=== PATIENT | female | born 1990 | race Two or more races ===

== ENCOUNTER 2025-10-29 08:50 | Observation (INO) | payer OTHER, SELFPAY ==
[2025-10-29] VITALS (11 sets, daily range): BP systolic 93–143; BP diastolic 67–91; PULSE 54–101; RESP 15–92; TEMP 36.6–36.8; O2SAT 69–99; BMI 19.8
--- NOTE | 2025-10-29 09:22 | XR_ITS ---
Study: AP upright chest of 0926 hours 29 October 2025. INDICATION: Shortness of breath. Known dextrocardia. COMPARISON: None. FINDINGS: The lungs are at the upper limit of normal for a expansion. There are no segmental alveolar infiltrates. The right lung base is extensively occupied by honeycombing. Similar, but more limited finding, is noted in the left base particularly inferomedially. There is no visible effusion. The upper lung zones are normal in appearance. The heart may be diminished in transverse dimension. Superior mediastinal structures are narrow and peripheral vessels are normal in distribution. The aortic arch is seen on the right IMPRESSION: COPD with bibasilar honeycombing. Is there a known history of usual interstitial pneumonia
[2025-10-29] MEDS: MethylPREDNISolone SOD SUCC 62.5 MG/ML 2ML VIAL 125 MG IVP (09:30)
[2025-10-29] MEDS: SODIUM CHLORIDE 0.9% 500 ML 500 ML 999 ML IV (09:33)
[2025-10-29 09:45] LABS: Lactate (Lactic Acid) 1.3 mMol/L (0.4-2.0)
[2025-10-29] MEDS: SODIUM CHLORIDE RT SOL 0.9% 3 ML NEBU INH (09:49)
[2025-10-29] MEDS: ALBUTEROL RT 2.5 MG/0.5 ML NEBU 5 MG INH ×2 (09:50→13:15)
[2025-10-29] MEDS: BUDESONIDE RT 0.5 MG/2 ML NEBU 0.25 MG INH (09:50)
[2025-10-29 09:53] LABS: Basophils # (Auto) 0.1 Thou/mm3 (0.0-0.2); Basophils % (Auto) 1 % (0-2.5); Eosinophils # (Auto) 0.4 Thou/mm3 (0.0-0.5); Eosinophils % (Auto) 4 % (0-10); Hematocrit 41.1 % (36.0-46.0); Hemoglobin 12.7 g/dL (12.0-16.0); Immature Granulocytes Auto 0.03 Thou/mm3 (0.00-0.00); Lymphocytes # (Auto) 2.2 Thou/mm3 (1.0-4.8); Lymphocytes % (Auto) 27 % (10-50); Mean Corpuscular HGB Conc 30.9 g/dl (31.0-37.0); Mean Corpuscular Hemoglobin 25.0 pg (25.0-35.0); Mean Corpuscular Volume 81 fL (80-100); Monocytes # (Auto) 0.5 Thou/mm3 (0.0-0.8); Monocytes % (Auto) 7 % (0-12); Neutrophils # (Auto) 5.0 Thou/mm3 (1.8-7.7); Neutrophils % (Auto) 61 % (37-80); Nucleated Red Blood Cell # 0.00 Thou/mm3 (0.00-0.00); Nucleated Red Blood Cell % 0 /100 WBC (0); Platelet Count 446 Thou/mm3 (140-440); RDW Standard Deviation 54.0 fL (36.4-46.3); Red Blood Count 5.09 Miln/mm3 (4.00-5.20); White Blood Count 8.2 Thou/mm3 (3.6-11.0)
[2025-10-29 10:19] LABS: INR 1.0 (0.9-1.3); Prothrombin Time 10.9 Seconds (9.0-12.2)
[2025-10-29 10:22] LABS: Alanine Aminotransferase 8 U/L (10-49); Albumin, Serum 4.5 gm/dL (3.5-5.0); Albumin/Globulin Ratio 1.1 (1.2-2.2); Alkaline Phosphatase 75 U/L (46-116); Anion Gap 10 (7-16); Aspartate Amino Transferase 20 U/L (0-34); BUN/Creatinine Ratio 8 Ratio (12-20); Bilirubin,Total 0.8 mg/dL (0.3-1.2); Blood Urea Nitrogen 6 mg/dL (9-23); Calcium 9.0 mg/dL (8.3-10.6); Calcium (Corrected) 9.0 mg/dL (8.5-10.1); Carbon Dioxide 27.0 mMol/L (20.0-31.0); Chloride 103 mMol/L (98-107); Creatinine (Component) 0.8 mg/dL (0.6-1.3); Globulin 4.2 gm/dL (2.3-3.5); Glucose 100 mg/dL (74-106); Magnesium 2.0 mg/dL (1.6-2.6); Osmolality,Calculated 277 (275-295); Potassium 4.0 mMol/L (3.4-5.1); Sodium 140 mMol/L (136-145); Total Protein 8.7 gm/dL (5.7-8.2); Troponin I < 0.002 ng/mL (0.0-0.045); eGFR > 60 See Note
[2025-10-29 10:55] LABS: Collection Type, Urine Clean Catch; RBC,Urine 0 /hpf (0-3); WBC,Urine 0 /hpf (0-5)
--- NOTE | 2025-10-29 11:19 | PD.ASTHM ---
ED Asthma RME/HPI General Chief Complaint: Asthma Stated Complaint: ASTHMA ATTACK Time Seen by Provider: 10/29/25 09:18 Arrival date/time: 10/29/25 08:50 Limitations: no limitations RME / HPI RME / HPI Narrative: 35 year old female with history of valley fever, prior bacterial pneumonia infections requiring hospitalization, asthma presents to the ED for evaluation of shortness of breath beginning last night and remaining constant since. Patient described feeling she is not getting enough air that was not improved with use of nebulizer treatments at home. Denies fevers, chills, sweats, chest pain, abdominal pain, n/v/d, or urinary symptoms. Denies any sick contacts. Patient mentioned May of this year she was admitted at [facility] for bacterial pneumonia and valley fever. Was treated with Levaquin and discharged home with Flucanozole which she took for 3 months. States in August of this year the patient was admitted again for pneumonia and discharged home where she has since received outpatient treatment. States she has tobramycin nebulizer treatments at home. Related Data Allergies Allergy/AdvReac Type Severity Reaction Status Date / Time Penicillins Allergy Intermediate Hives Verified 10/29/25 08:52 Review of Systems Review of Systems Systems Reviewed: All systems reviewed, normal except as documented Past Medical History Past Medical History CARDIAC: Negative Congestive Heart Failure RESPIRATORY: Positive Asthma; Negative Chronic Obstructive Pulmonary Disease (COPD) GENITOURINARY: Negative Renal Disease ENDOCRINE: Negative Diabetes Mellitus Type 1 or Diabetes Mellitus Type 2 Surgical History SURGICAL: Positive Nose Surgery Social History SMOKING STATUS: Never smoker ED Exam General Limitations: Present no limitations General appearance: Present alert and other (Pale ) Head Head exam: Present atraumatic, normocephalic and normal inspection Eye Eye exam: Present normal appearance, PERRL and EOMI ENT ENT exam: Present normal exam, normal oropharynx and mucous membranes moist Neck Neck exam: Present normal inspection, full ROM and trachea midline Chest Chest inspection: Present normal inspection and symmetric chest wall rise Respiratory Respiratory exam: Present other (Nasal cannula in place, decreased breath sounds throughout, decreased breath sounds middle lobes bilaterally, bibasilar crackles ) Cardiovascular Cardiovascular exam: Present regular rate, normal rhythm and normal heart sounds Abdominal Exam Abdominal exam: Present soft and normal bowel sounds Extremities Exam Extremities exam: Present normal inspection and full ROM Back Exam Back exam: Present normal inspection and full ROM Neurological Exam Neurological exam: Present alert, oriented X3 and CN II-XII intact Psychiatric Psychiatric exam: Present normal affect and normal mood Skin Skin exam: Present warm, dry, intact and normal color Course Quality Measures none Orders Category Date Time Status Insert [Insert IV] NOW Care 10/29/25 09:22 Active CXRP [XR chest 1V portable] Stat Exams 10/29/25 09:22 Completed CBC Stat Lab 10/29/25 09:11 Completed Comprehensive Metabolic Panel Stat Lab 10/29/25 09:11 Completed Lactic Acid [Lactate (Lactic Acid)] Stat Lab 10/29/25 09:11 Completed Magnesium Stat Lab 10/29/25 09:11 Completed Prothrombin Time with INR Stat Lab 10/29/25 09:11 Completed Troponin I Stat Lab 10/29/25 09:11 Completed Urinalysis Stat Lab 10/29/25 10:36 Received ALBUTEROL RT 0.5ml [Proventil Rt 0.5ml] Med 10/29/25 09:22 Discontinued 5 mg INH X1 ONE Budesonide Rt [Pulmicort Rt Josefa] Med 10/29/25 09:22 Discontinued 0.25 mg INH X1 ONE MethylPREDNISolone.* [SoluMEDROL Inj] Med 10/29/25 09:22 Discontinued 125 mg IVP X1 ONE Sodium Chloride 0.9% 500 ml [Ns] 500 ml Med 10/29/25 09:22 Discontinued IV 999 mls/hr Sodium Chloride Rt Josefa 0.9% [NS Rt Josefa 0.9%] Med 10/29/25 09:22 Active 3 ml INH PRN PRN Vital Signs Vital signs: Vital Signs Temperature 97.8 F 10/29/25 09:12 Pulse Rate 90 10/29/25 09:12 Respiratory Rate 24 H 10/29/25 09:12 Blood Pressure 143/91 H 10/29/25 09:12 Pulse Oximetry (%) 97 10/29/25 09:12 Oxygen Delivery Method Nasal Cannula 10/29/25 09:12 Oxygen Flow Rate 2 10/29/25 09:12 Asthma MDM Narrative MDM Narrative:: Thelma Ayoub am scribing for and in the presence of Dr. Ibrahim. 1125: Notified by RN the patients oxygen saturations dropped to 85% on room air after ambulating. Patient complaining of feeling short of breath. 1350: I spoke with hospitalist team for admission. Discussed patients PMHx, HPI, ED course, exam findings, labs, and radiology results. The hospitalist agree to accept the patient for admission. Patient data External records reviewed:: [facility] previous records Clinical information provided by:: patient Social determinants that could affect healthcare access:: none Patient has the following chronic illnesses:: Asthma, valley fever, prior bacterial pneumonia infections requiring hospitalization How is presenting disease/condition affected by chronic disease/condition?: exacerbated by Evaluation data The following diagnostics were reviewed and interpreted by me:: lab results and radiology exam(s) Lab and/or radiology exams considered but not ordered:: None Interpretation Summary: Ordering Physician: Breezy Ibrahim MD Date of Service: 10/29/25 Procedure(s): XR chest 1V portable Accession Number(s): [id number] cc: Breezy Ibrahim MD; NO PRIMARY/FAMILY,PHYSICIAN; Daniel Galan MD~ Study: AP upright chest of 0926 hours 29 October 2025. INDICATION: Shortness of breath. Known dextrocardia. COMPARISON: None. FINDINGS: The lungs are at the upper limit of normal for a expansion. There are no segmental alveolar infiltrates. The right lung base is extensively occupied by honeycombing. Similar, but more limited finding, is noted in the left base particularly inferomedially. There is no visible effusion. The upper lung zones are normal in appearance. The heart may be diminished in transverse dimension. Superior mediastinal structures are narrow and peripheral vessels are normal in distribution. The aortic arch is seen on the right IMPRESSION: COPD with bibasilar honeycombing. Is there a known history of usual interstitial pneumonia Dictated By: Daniel Galan MD Signed By: <Electronically signed by Daniel Galan MD in OV> 10/29/25 0948 Medications / Prescriptions Medications or Prescriptions considered but not ordered:: None Medication administrations:: Medication Administration History Sodium Chloride (Sodium Chloride Rt Josefa 0.9% 3 Ml Nebu) 3 ml INH PRN PRN PRN Reason: SOLN Stop: 11/28/25 09:21 Last Admin: 10/29/25 09:49 Dose: 3 ml Documented By: [email or web address] Discontinued Medications Albuterol (Albuterol Rt 2.5 Mg/0.5 Ml Nebu) 5 mg INH X1 ONE Stop: 10/29/25 09:23 Last Admin: 10/29/25 09:50 Dose: 5 mg Documented By: SYEDA Budesonide (Budesonide Rt 0.5 Mg/2 Ml Nebu) 0.25 mg INH X1 ONE Stop: 10/29/25 09:23 Last Admin: 10/29/25 09:50 Dose: 0.25 mg Documented By: SYEDA Sodium Chloride (Ns) 500 mls @ 999 mls/hr IV .Q31M ONE Stop: 10/29/25 09:52 Last Infusion: 10/29/25 10:04 Dose: Infused Documented By: Admin: 10/29/25 09:33 Dose: 999 mls/hr Documented By: SOFIE Methylprednisolone Sodium Succinate (Methylprednisolone Sod Succ 62.5 Mg/Ml 2ml Vial) 125 mg IVP X1 ONE Stop: 10/29/25 09:23 Last Admin: 10/29/25 09:30 Dose: 125 mg Documented By: SOFIE Consultations Consultation(s) initiated? (list below): Yes Consultation #1 (Physician, Specialty, Details): See MDM Diagnosis Most likely diagnosis given after review of the tests above:: Bilateral infiltrates History of valley fever Exacerbation of COPD Admission Indicated Admission indicated?: indicated Admission Request Was there a request for admission?: Yes Admission Attestation Admission request attestation: Discussed case with [] from Hospitalist service regarding admission. Discussed patients ED course, exam findings, labs, and radiology results. The Hospitalist [agrees,declines] to accept the patient for admission. Disposition Plan Disposition Plan: Admit Discharge Plan Plan Patient Disposition: Admit Acute Care w/in Hospital Problem List Clinical Impression: Bilateral pulmonary infiltrates, History of [place] Valley fever, COPD exacerbation
[2025-10-29 11:31] LABS: Bacteria,Urine Rare; Bilirubin,Urine Negative (Negative); Blood,Urine Negative (Negative); Clarity,Urine Clear (Clear/Hazy); Color,Urine Colorless (Lt Yel-Yel); Glucose, Urine Negative (Negative); Ketones,Urine Negative (Negative); Leukocyte Esterase,Urine Negative (Negative); Nitrite,Urine Negative (Negative); PH,Urine 6.0 (5.0-7.0); Protein,Urine Negative (Neg - Trace); Specific Gravity,Urine 1.005 (1.001-1.035); Squamous Epithelial Cell,Urine < 1 /hpf (0-5); Urobilinogen,Urine Negative mg/dL (0.0-1.0)
--- NOTE | 2025-10-29 14:40 | PD.RESHP ---
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 Ann, in [place]), valley fever (previously treated), and recurrent childhood pulmonary/sinus infections who presented for shortness of breath and anxiety. States that for less than 24 hours she has been feeling short of breath when she walks up her stairs or with exertion in general afterwards feels anxious. Of note, she had spoken to her cardiovascular invasive specialist 2 weeks ago who had prescribed inhaled tobramycin as she was starting to feel unwell. Additionally, she was recently diagnosed with valley fever on 05/2025 and completed 3-month long course of antifungals and has been hospitalized a total of 4 times prior to this admission for pulmonary related issues. Endorses having multiple pulmonary infections as a child as well. In ED, initial vitals showed she was saturating 97% on 2 L NC with RR of 24 and other vital signs stable. CBC unremarkable, CHEM panel largely unremarkable. CXR consistent with situs inversus and bibasilar honeycombing. She was given Solu-Medrol 125 mg IV x 1, albuterol treatment x 2, budesonide, and levofloxacin. Will be placed in observation for management of the sequelae of PCD and started on levofloxacin, prednisone 4 g daily, and scheduled breathing treatments. 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, valley fever, recurrent childhood pulmonary/sinus infections Medications: albuterol, ipratropium, tobramycin (30 day supply) PSHx: previous sinus surgery Allergies: penicillin (hives) Review of Systems Review of Systems Systems Reviewed: All systems reviewed, normal except as documented Exam Vital Signs Temp Pulse Resp BP Pulse Ox O2 Del Method O2 Flow Rate 97.8 F 65 22 H 143/91 H 99 Nasal Cannula 2 10/29/25 09:12 10/29/25 13:22 10/29/25 13:22 10/29/25 09:12 10/29/25 13:22 10/29/25 09:12 10/29/25 13:22 Narrative Exam General: AOx3, slightly anxious, able to speak full sentences HEENT: NC/AT, mucous membranes moist, bilateral sclera anicteric Cardiovascular: regular rate and rhythm, S1/S2 present, no murmurs appreciated Pulmonary: wheezing bilaterally but predominantly in bases bilaterally Abdominal: soft, non-tender, non-distended, no rebound/guarding, normal bowel sounds present Musculoskeletal: normal ROM, no peripheral edema Skin: warm and dry, intact, no rashes Neuro: CN II-XII intact, no focal deficits Results: Labs 10/29/25 09:11 10/29/25 09:11 Labs: Short CBC 10/29/25 Range/Units 09:11 WBC 8.2 (3.6-11.0) Thou/mm3 Hgb 12.7 (12.0-16.0) g/dL Hct 41.1 (36.0-46.0) % Plt Count 446 H (140-440) Thou/mm3 BMP 10/29/25 09:11 Sodium 140 Potassium 4.0 Chloride 103 Carbon Dioxide 27.0 BUN 6 L Creatinine 0.8 Glucose 100 Calcium 9.0 Cardiac Enzymes 10/29/25 Range/Units 09:11 Troponin I < 0.002 (0.0-0.045) ng/mL Liver Function 10/29/25 Range/Units 09:11 Total Bilirubin 0.8 (0.3-1.2) mg/dL AST 20 (0-34) U/L ALT 8 L (10-49) U/L Alkaline Phosphatase 75 (46-116) U/L Albumin 4.5 (3.5-5.0) gm/dL Urine 10/29/25 Range/Units 10:36 Urine Color Colorless A (Lt Yel-Yel) Urine Clarity Clear (Clear/Hazy) Urine pH 6.0 (5.0-7.0) Ur Specific [place] 1.005 (1.001-1.035) Urine Protein Negative (Neg - Trace) Urine Glucose (UA) Negative (Negative) Quality Measures Quality Measures VTE prophylaxis Medications Home Medications and Allergies Allergies Allergy/AdvReac Type Severity Reaction Status Date / Time Penicillins Allergy Intermediate Hives Verified 10/29/25 08:52 Visit Medications Acetaminophen (Acetaminophen 325 Mg Tablet) 650 mg PO Q6H PRN PRN Reason: pain (1-3) or fever 100.4 Stop: 11/28/25 14:31 Albuterol/Ipratropium (Albuterol/Ipratropium (Duoneb) Rt Josefa 3 Ml Nebu) 3 ml INH Q6HRRT [facility] Stop: 11/28/25 18:59 Levofloxacin/Dextrose (Levaquin Ivpb) 500 mg in 100 mls @ 100 mls/hr IV X1 ONE Stop: 10/29/25 14:43 Levofloxacin/Dextrose (Levaquin Ivpb) 750 mg in 150 mls @ 100 mls/hr IV QDAY [facility] Stop: 11/06/25 08:59 Metoclopramide HCl (Metoclopramide Inj 5 Mg/Ml Vial 2 Ml) 10 mg IVP Q6HR PRN; Protocol PRN Reason: NAUSEA OR VOMITING Stop: 11/28/25 14:38 Prednisone (Prednisone 20 Mg Tablet) 40 mg PO QDAY [facility] Stop: 11/05/25 14:39 Sodium Chloride (Sodium Chloride Rt Josefa 0.9% 3 Ml Nebu) 3 ml INH PRN PRN PRN Reason: SOLN Stop: 11/28/25 09:21 Last Admin: 10/29/25 09:49 Dose: 3 ml Sodium Chloride (Sodium Chloride Rt Josefa 0.9% 3 Ml Nebu) 3 ml INH PRN PRN PRN Reason: SOLN Stop: 11/28/25 12:52 Sodium Chloride (Sodium Chloride Rt 10% 15 Ml Nebu) 5 ml INH X1 ONE Stop: 10/29/25 14:33 Discontinued Medications Albuterol (Albuterol Rt 2.5 Mg/0.5 Ml Nebu) 5 mg INH X1 ONE Stop: 10/29/25 09:23 Last Admin: 10/29/25 09:50 Dose: 5 mg Albuterol (Albuterol Rt 2.5 Mg/0.5 Ml Nebu) 5 mg INH X1 ONE Stop: 10/29/25 12:54 Last Admin: 10/29/25 13:15 Dose: 5 mg Budesonide (Budesonide Rt 0.5 Mg/2 Ml Nebu) 0.25 mg INH X1 ONE Stop: 10/29/25 09:23 Last Admin: 10/29/25 09:50 Dose: 0.25 mg Sodium Chloride (Ns) 500 mls @ 999 mls/hr IV .Q31M ONE Stop: 10/29/25 09:52 Last Infusion: 10/29/25 10:04 Dose: Infused Methylprednisolone Sodium Succinate (Methylprednisolone Sod Succ 62.5 Mg/Ml 2ml Vial) 125 mg IVP X1 ONE Stop: 10/29/25 09:23 Last Admin: 10/29/25 09:30 Dose: 125 mg Assessment & Plan Plan 35-year-old female with a past medical history of 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 Ann, in [place]), valley fever (previously treated), and recurrent childhood pulmonary/sinus infections is admitted for management of sequelae of PCD. #Acute hypoxic respiratory failure #Interstitial pneumonia Presents with less than one day of shortness of breath and anxiety. History of Kartagener syndrome and follows cardiovascular invasive specialist, Dr. Ann, in [place]. Recently prescribed tobramycin as she was feeling unwell a couple weeks prior. Also recently diagnosed and treated (05/2025-08/2025) for valley fever. ? DuoNebs every 6 hours scheduled ? Levofloxacin IV daily (10/29-) ? Prednisone 40 mg daily ? Supplemental oxygen and wean as tolerated ? Follow-up ABG ? Follow-up influenza and COVID results ? Follow-up sputum culture and blood culture #Primary ciliary dyskinesia #Situ sinversus #Kartagener syndrome #History of valley fever ? Follow-up outpatient with cardiovascular invasive specialist Hospital management: Disposition: treatment for sequelae of PCD on IV antibiotics Fluids: not indicated Diet: regular Lines: PIV DVT prophylaxis: SCDs CODE STATUS: full code ----- Plan discussed with attending physician Dr. Mary Bernal MD PGY-2 Internal Medicine Attending Provider Attestation/Addendum I or my resident physicians have discussed care with the ED physician and I have made the decision to admit. I have discussed and was present for the essential components of the history, physical examination, diagnosis, and treatment plan with the resident. I agree with the patient's care as documented by the resident and amended herein by me. Greg Hernandez DO. Although this document has been carefully reviewed, there may still be some phonetic and other typographical errors. These errors are purely grammatical due to imperfections in the software program and should not be construed in any way to compromise the substance of the patient's medical care during this visit.
[2025-10-29] MEDS: ACETAMINOPHEN 325 MG TABLET 650 MG PO (16:22)
[2025-10-29 16:48] LABS: Allen Test Not Performed; Base Excess 3 (-3-3); HCO3 28 mEq/L (20-26); Inspired Oxygen, FIO2 21 %; O2 Saturation 92 % (91-98); PCO2 44 mmHg (32.0-48.0); PO2 62 mmHg (83-108); Puncture Site Right Radial; pH, Arterial 7.41 (7.35-7.45)
--- NOTE | 2025-10-29 17:33 | PC.NURSE ---
CALLED REPORT TO CHRISTA CONNELL ON MED SURG. ALL QUESTIONS ANSWERED.
[2025-10-29] MEDS: ALBUTEROL/IPRATROPIUM (Duoneb) RT SOL 3 ML NEBU INH (19:02)
[2025-10-30] VITALS: BP 105/67; PULSE 74; RESP 17; TEMP 36.3; O2SAT 96
[2025-10-30] MEDS: ALBUTEROL/IPRATROPIUM (Duoneb) RT SOL 3 ML NEBU INH ×2 (00:34→06:26)
[2025-10-30 00:35] VITALS: PULSE 92; RESP 20; O2SAT 98
[2025-10-30 04:00] VITALS: BP 99/65; PULSE 65; RESP 18; TEMP 36.3; O2SAT 94
[2025-10-30 06:27] LABS: Basophils # (Auto) 0.0 Thou/mm3 (0.0-0.2); Basophils % (Auto) 0 % (0-2.5); Eosinophils # (Auto) 0.0 Thou/mm3 (0.0-0.5); Eosinophils % (Auto) 0 % (0-10); Hematocrit 35.9 % (36.0-46.0); Hemoglobin 11.3 g/dL (12.0-16.0); Immature Granulocytes Auto 0.03 Thou/mm3 (0.00-0.00); Lymphocytes # (Auto) 2.4 Thou/mm3 (1.0-4.8); Lymphocytes % (Auto) 19 % (10-50); Mean Corpuscular HGB Conc 31.5 g/dl (31.0-37.0); Mean Corpuscular Hemoglobin 25.6 pg (25.0-35.0); Mean Corpuscular Volume 81 fL (80-100); Monocytes # (Auto) 1.0 Thou/mm3 (0.0-0.8); Monocytes % (Auto) 8 % (0-12); Neutrophils # (Auto) 9.5 Thou/mm3 (1.8-7.7); Neutrophils % (Auto) 73 % (37-80); Nucleated Red Blood Cell # 0.00 Thou/mm3 (0.00-0.00); Nucleated Red Blood Cell % 0 /100 WBC (0); Platelet Count 375 Thou/mm3 (140-440); RDW Standard Deviation 54.0 fL (36.4-46.3); Red Blood Count 4.42 Miln/mm3 (4.00-5.20); White Blood Count 13.0 Thou/mm3 (3.6-11.0)
[2025-10-30 06:28] VITALS: PULSE 73; PULSE 78; RESP 18; O2SAT 100; O2SAT 98
[2025-10-30 06:39] LABS: Albumin, Serum 4.1 gm/dL (3.5-5.0); Anion Gap 7 (7-16); BUN/Creatinine Ratio 11 Ratio (12-20); Blood Urea Nitrogen 8 mg/dL (9-23); Calcium 9.1 mg/dL (8.3-10.6); Calcium (Corrected) 9.1 mg/dL (8.5-10.1); Carbon Dioxide 28.7 mMol/L (20.0-31.0); Cardiac Risk Estimate 2.5 RATIO (3.7-5.6); Chloride 104 mMol/L (98-107); Cholesterol 186 mg/dL (132-200); Creatinine (Component) 0.7 mg/dL (0.6-1.3); Estimated Creatinine Clearance 91.0 mL/min (>60); Glucose 100 mg/dL (74-106); HDL Cholesterol 75 mg/dL (40-60); LDL Cholesterol,Calculated 102 mg/dL (0-130); Magnesium 1.9 mg/dL (1.6-2.6); Osmolality,Calculated 277 (275-295); Phosphorous 3.8 mg/dL (2.4-5.1); Potassium 4.5 mMol/L (3.4-5.1); Sodium 140 mMol/L (136-145); Thyroid Stimulating Hormone 0.45 uIU/mL (0.55-4.78); Triglycerides 45 mg/dL (30-150); eGFR > 60 See Note
[2025-10-30 08:00] VITALS: BP 105/64; PULSE 68; RESP 17; TEMP 36.7; O2SAT 95
[2025-10-30] MEDS: ACETAMINOPHEN 325 MG TABLET 650 MG PO (08:18)
--- NOTE | 2025-10-30 09:57 | PD.RESDS ---
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 Ann, in [place]), valley fever (previously treated), and recurrent childhood pulmonary/sinus infections who presented for shortness of breath and anxiety. States that for less than 24 hours she has been feeling short of breath when she walks up her stairs or with exertion in general afterwards feels anxious. Of note, she had spoken to her lead bi developer 2 weeks ago who had prescribed inhaled tobramycin as she was starting to feel unwell. Additionally, she was recently diagnosed with valley fever on 05/2025 and completed 3-month long course of antifungals and has been hospitalized a total of 4 times prior to this admission for pulmonary related issues. Endorses having multiple pulmonary infections as a child as well. She was observed overnight and following morning patient states that she felt much better compared to when she was initially admitted. She was saturating well on 2 L nasal cannula in the morning and taken off she was saturating 94% on room air. She was also ambulated in the hallway and maintain O2 saturation of 92 to 93% and heart rate between 75 to 80 bpm. Deemed stable for discharge and she was afebrile overnight, increasing WBC from steroids, and COVID and flu negative. Will be prescribed Medrol ed and levofloxacin for 5 more days in addition to dextromethorphan for symptomatic cough relief. Diagnoses during admission: #Acute hypoxic respiratory failure #Interstitial pneumonia #Primary ciliary dyskinesia #Situ sinversus #Kartagener syndrome #History of valley fever Discharge instructions: ? Take steroid tablets as instructed ? Take levofloxacin for 5 days to complete antibiotic course ? Continue taking all other home medications as prescribed ? Follow-up with PCP within 1-2 weeks of discharge ? Follow-up with your lead bi developer within 1-2 weeks of discharge ? If you do not have a PCP, you can follow-up at [facility] (you can call [phone] to make an appointment) ? Return to ED if symptoms worsen or recur ----- Plan discussed with attending physician Dr. Ave Bernal MD PGY-2 Internal Medicine Time Spent with Patient Time attestation: Total time spent providing and/or coordinating discharge services: Time spent: Greater than 30 minutes Exam Vital Signs Temp Pulse Resp BP Pulse Ox O2 Del Method O2 Flow Rate 98.1 F 68 17 105/64 95 Nasal Cannula 2 10/30/25 08:00 10/30/25 08:00 10/30/25 08:00 10/30/25 08:00 10/30/25 08:00 10/30/25 08:00 10/30/25 08:00 Narrative Exam General: AOx3, in no acute distress, able to speak full sentences HEENT: NC/AT, mucous membranes moist, bilateral sclera anicteric Cardiovascular: regular rate and rhythm, S1/S2 present, no murmurs appreciated Pulmonary: bibasilar crackles Abdominal: soft, non-tender, non-distended, no rebound/guarding, normal bowel sounds present Musculoskeletal: normal ROM, no peripheral edema Skin: warm and dry, intact, no rashes Neuro: CN II-XII intact, no focal deficits Discharge Plan Plan Patient Disposition: HOME (Self Care) Patient condition on transfer: Stable Care Plan Goals: ? Take steroid tablets as instructed ? Take levofloxacin for 5 days to complete antibiotic course ? Continue taking all other home medications as prescribed ? Follow-up with PCP within 1-2 weeks of discharge ? Follow-up with your lead bi developer within 1-2 weeks of discharge ? If you do not have a PCP, you can follow-up at the [facility] (you can call [phone] to make an appointment) ? Return to ED if symptoms worsen or recur Prescriptions/Referrals Prescriptions/Med Rec: New methylprednisolone [Medrol (Ed)] 4 mg tablets,dose pack 4 mg PO QDAY Qty: 21 0RF levofloxacin 750 mg tablet 750 mg PO Q24H 5 Days Qty: 5 0RF dextromethorphan HBr 10 mg tablet,chewable 10 mg PO Q4H PRN (Reason: cough) Qty: 14 0RF Referrals: No Primary/Family,Physician [Primary Care Provider] Patient/Caregiver Discharge Instructions Discharge Activity: activity as tolerated Education Materials: What Is Pneumonia?, Preventing Pneumonia, When You Have Pneumonia Print Language: Citizen Of [place] Stand Alone Forms: Debra Award Info., Patient Portal Info Letter, Work/Release Restrictions Discharge Order Discharge Orders: Discharge (Routine); Ordered 10/30/25 Ordered By: Wilfredo Benton Scrancho Quality Discharge Quality Measures VTE prophylaxis MD Attestestation MD Attestation I have examined the patient, reviewed labs and imaging findings, discussed the case with the resident(s), and reviewed entered orders. I agree with the plan of care as outlined in this note. Time Spent: [address] MD
--- NOTE | 2025-10-30 10:00 | PC.NURSE ---
assessed patient on room air, O2 sats 94% HR 78-80/min. ambulated patient in the hallway, patient maintained O2 saturation 92-93% and HR remained 75-80 BPM. Patient denied SOB or discomfort. encouraged to use IS every hour X 10 breaths as tolerated.
--- NOTE | 2025-10-30 11:19 | PC.NURSE ---
discharge needs met, patient left with family with all belongings, in stable condition.
--- NOTE | 2025-10-30 11:57 | PC.NURSE ---
Patient has nebulizer treatment medication and equipment at home, also have rescue inhaler.
[2025-10-30 12:00] VITALS: BP 114/75; PULSE 68; RESP 17; TEMP 36.6; O2SAT 93
== END 2025-10-30 11:19 | disposition home or self-care (01) ==
LOC: SERX 09:32 → SERHOLD 14:51 → S3NX 17:54
PROVIDERS: Admitting Provider Student in an Organized Health Care Education/Training Program; Emergency Provider Family Medicine; Visit Provider Student in an Organized Health Care Education/Training Program
DX: J96.01 Acute respiratory failure with hypoxia (principal); J84.9 Interstitial pulmonary disease, unspecified; Q89.3 Situs inversus; F41.9 Anxiety disorder, unspecified
CPT/HCPCS: 36415; 36600; 71045; 80053; 80061; 80069; 81001; 82803; 83605; 83735; 84443; 84484; 85025; 85610; 87040; 87205; 87502; 87635; 94640; 94664; 96361; 96365; 96366; 96374; 96375; 99284; A9270; G0378; J1956; J2919; J7512; J7602; J7999; J7611